=== PATIENT | female | born 1950 | race Caucasian/White ===

== ENCOUNTER 2017-04-29 21:19 | Emergency (ER) | payer MEDICARE, MEDICAID ==
--- NOTE | ~2017-04-29 | CT71 ---
[facility] A Service of [facility] RADIOLOGY TEXT RESULTS PATIENT: COLETTE VILCHIS LOCATION: [facility] : 50 UNIT #: [id number] AGE: [address]: Noah Erickson MD SEX: F ORDER DR: [id number] [place] [address] [place], [place] [address] [id number] E MR#: [id number] Acc #: [id number] NAME: COLETTE VILCHIS : 1950 SEX: F STUDY DATE/TIME: 04/29/2017 21:59 UNIT: [facility] ROOM: STUDY DESCRIPTION: CT Head Wo Contrast Attending Physician: Noah Erickson M.D. Ordering Physician: Noah Erickson M.D. Primary Care Physician: No Primary Care Physician MEDICAL IMAGING REPORT This report is preliminary unless electronic signature is present EXAM CT 04/29/17 at 21:59. INDICATIONS Seizure prior to arrival today x 3. Patient currently unresponsive and lethargic. Patient is confused and combative. This is a new onset seizure. TECHNIQUE FINDINGS Axial images were obtained from base to the vertex without contrast. This CT exam was performed with one or more of the following radiation dose reduction techniques: automatic exposure control, adjustment of mA and/or kV according to patient size, and iterative reconstruction. COMPARISON No comparison. FINDINGS Exam is degraded by a mixed excessive patient motion. There is a large high right frontal mass which is partially calcified. Measures approximately 2.9 x 2.9 cm. It does have some adjacent vasogenic edema. This is most likely a meningioma. There is local mass effect. No other masses are seen on this noncontrast study. No acute infarct or hemorrhage. No skull fracture. IMPRESSION Motion degraded exam. There is a 2.9 cm partially calcified right high frontal mass with associated vasogenic edema and local mass effect. This is presumably a large meningioma. This could be better evaluated with pre and postcontrast MRI. The rest of the brain is negative allowing for motion. [facility] A Service [facility] RADIOLOGY TEXT RESULTS PATIENT: COLETTE VILCHIS LOCATION: [facility] : 50 UNIT #: [id number] AGE: [address]: Noah Erickson MD SEX: F ORDER DR: Dictated by... Fam Rodriguez Jr., M.D. THIS IS AN ELECTRONICALLY VERIFIED REPORT Fam Rodriguez Jr., M.D. at 04/30/2017 9:13 PM GRACE/cedrick TD: 04/30/2017 09:29 JOB #: [id number] MEDICAL IMAGING REPORT Page 1 of 1 COPY
--- NOTE | ~2017-04-29 | EKG ---
PATIENT: COLETTE VILCHIS UNIT #: [id number] Ventricular Rate: 101 BPM Atrial Rate: 101 BPM P-R Interval: 176 ms QRS Duration: 102 ms Q-T Interval: 374 ms QTC Calculation(Bezet): 484 ms P [place]: 47 degrees Calculated R [place]: 74 degrees Calculated T [place]: 31 degrees Diagnosis Line: Sinus tachycardia Diagnosis Line: Low voltage QRS Diagnosis Line: Non Specific ST Changes- Abnormality Diagnosis Line: No previous ECGs available Diagnosis Line: Confirmed by CRISTIANA HOFFMAN MD ([id number]) on Diagnosis Line: 04/30/2017 4:40:00 PM INTERPRETING MD: IGNACIA
--- NOTE | ~2017-04-29 | CR72 ---
[facility] A Service of [facility] RADIOLOGY TEXT RESULTS PATIENT: COLETTE VILCHIS LOCATION: [facility] : 50 UNIT #: [id number] AGE: [address]: Noah Erickson MD SEX: F ORDER DR: [id number] [facility] [address] [place], [place] [address] [id number] E MR#: [id number] Acc #: [id number] NAME: COLETTE VILCHIS : 1950 SEX: F STUDY DATE/TIME: 04/29/20172235 UNIT: [facility] ROOM: STUDY DESCRIPTION: CR Chest Single View Portable Attending Physician: Noah Erickson M.D. Ordering Physician: Noah Erickson M.D. Primary Care Physician: No Primary Care Physician MEDICAL IMAGING REPORT This report is preliminary unless electronic signature is present EXAM Portable chest, 2235. INDICATION Shortness of air. Respiratory failure. Tube placement. Seizure today. FINDINGS AP portable chest was obtained. No comparison. ET tube mid trachea. Lung volumes are quite low and there is elevation of the left hemidiaphragm. Infiltrate or atelectasis noted in the left base and to a lesser degree in the right base. There is a large hiatal hernia. No pneumothorax. IMPRESSION Well-positioned ET tube. The heart is enlarged. Lung volumes are low. There is an elevated left hemidiaphragm with bibasilar atelectasis. There is a large hiatal hernia. Dictated by... Fam Rodriguez Jr., M.D. THIS IS AN ELECTRONICALLY VERIFIED REPORT Fam Rodriguez Jr., M.D. at 04/30/2017 9:13 PM GRACE/selin TD: 04/30/2017 09:40 JOB #: [id number] MEDICAL IMAGING REPORT Page 1 of 1 COPY
[2017-04-29 21:43] LABS: BASOPHIL# 0.1 X10e3 (0-0.3); BASOPHIL% 0.7 % (0-2.5); EOSINOPHIL# 0.3 X10e3 (0-0.7); EOSINOPHIL% 1.6 % (0.0-7.0); HEMOGLOBIN 13.6 gm/dL (12.0-16.0); LYMPHOCYTE# 5.4 X10e3 (1.0-3.5); LYMPHOCYTE% 33.1 % (17.0-45.0); MEAN CELL VOLUME 89.1 FL (83-96); MEAN CORPUSCULAR HEMOGLOBIN 28.2 PG (28-34); MEAN CORPUSCULAR HGB CONC 31.7 g/dL (30-36); MEAN PLATELET VOLUME 10.6 FL (6.5-11.5); MONOCYTE# 1.2 X10e3 (0-1.0); MONOCYTE% 7.6 % (3.0-12.0); NEUTROPHIL# 9.3 X10e3 (1.5-7.1); PLATELET COUNT 282 X10e3 (140-420); RED BLOOD COUNT 4.83 X10e (3.90-5.30); RED CELL DISTRIBUTION WIDTH 14.4 % (11.0-15.5); WHITE BLOOD COUNT 16.4 X10e3 (4.0-10.5)
[2017-04-29 21:45] LABS: DIFF IND YES
[2017-04-29 21:48] LABS: POC - CKMB 2.5 ng/mL (0.0-7.9); POC - TROPONIN <0.05 ng/mL (<=0.05)
[2017-04-29 22:07] LABS: PLATELET ESTIMATE NORMAL (NORMAL)
[2017-04-29 22:40] LABS: URINE SOURCE CLEAN CATCH
[2017-04-29 22:45] LABS: URINE APPEARANCE CLEAR; URINE BILIRUBIN NEG (NEG); URINE BLOOD TRACE (NEG); URINE COLOR YELLOW; URINE GLUCOSE NEG (NEG); URINE KETONE NEG (NEG); URINE LEUKOCYTE ESTERASE NEG (NEG); URINE NITRATE NEG (NEG); URINE PROTEIN 2+ (NEG); URINE SPECIFIC GRAVITY 1.024 (1.003-1.035); URINE UROBILINOGEN 0.2 MG/DL (NEG)
[2017-04-29 22:48] LABS: URINE BACTERIA AUWI NEG (NEGATIVE); URINE SQUAMOUS EPITHELIAL CELL OCC /[HPF]
[2017-04-29 22:48] LABS: ALBUMIN SERUM 4.4 g/dL (3.5-5.0); ALCOHOL BLOOD <5 mg/dL (0); ALKALINE PHOSPHATASE 79 U/L (32-92); ALT (SGPT) 22 U/L (10-40); AST (SGOT) 34 U/L (10-42); BILIRUBIN, DIRECT 0.2 mg/dL (0.0-0.2); BILIRUBIN,INDIRECT 1.3 mg/dL (0.0-0.9); BILIRUBIN,TOTAL 1.5 mg/dL (0.2-2.0); BLOOD UREA NITROGEN 13 mg/dL (9-23); BUN/CREATININE RATIO 21.66; CALCIUM SERUM 8.8 mg/dL (8.4-10.2); CARBON DIOXIDE 18 mmol/L (22-31); CHLORIDE 98 mmol/L (100-111); CREATININE SERUM 0.6 mg/dL (0.6-1.4); GLUCOSE FASTING 165 mg/dL (70-110); POTASSIUM 3.6 mmol/L (3.5-5.1); PROTEIN TOTAL SERUM 8.2 g/dL (6.0-8.3); SODIUM 134 mmol/L (135-145)
[2017-04-29 22:56] LABS: CULTURE INDICATED? NO; URINE GRANULAR CAST 0-2 /[HPF]
[2017-04-29 23:11] LABS: AMPHETAMINE NEG (NEG); BARBITURATES NEG (NEG); BENZODIAZEPINES NEG (NEG); COCAINE NEG (NEG); MARIJUANA NEG (NEG); OPIATES NEG (NEG); TRICYCLIC ANTIDEPRESSANTS NEG (NEG); U METHADONE NEG (NEG)
== END 2017-04-29 23:45 | disposition short-term general hospital (02) ==
LOC: CED 21:19
PROVIDERS: Emergency Medicine
DX: G40.401 Other generalized epilepsy and epileptic syndromes, not intractable, with status epilepticus (principal); R22.0 Localized swelling, mass and lump, head; Z88.2 Allergy status to sulfonamides; Z88.5 Allergy status to narcotic agent
CPT/HCPCS: 31500; 36415; 51702; 70450; 71010; 80048; 80076; 80307; 81003; 82553; 82947; 84484; 85025; 93005; 94002; 94760; 96361; 96374; 99291; G0480; J0330; J1953; J2250